=== PATIENT | female | born 1995 | race Caucasian/White ===

== ENCOUNTER → 2016-12-07 19:30 | Observation (INO) ==
[2016-12-07 18:49] LABS: Apearance,Urine CLEAR (Clear); Bacteria,Urine Occasional /HPF (Few); Bilirubin,Urine Negative (Negative); Blood, Urine Negative (Negative); Glucose,Urine (UA) Negative (Negative); Hyaline Casts,Urine 1 /LPF (0-3); Ketones,Urine Negative (Negative); Mucus,Urine Occasional /LPF (Occasional); Nitrite,Urine Negative (Negative); Protein,Urine Negative; Squamous Epithelial Cell,Urine Occasional /HPF (0-10); Urine Color Yellow (Yellow); Urine Urobilinogen < 2.0 EU/DL (0.2-1.0); WBC,Urine 1 /HPF (0-6)
== END | disposition home or self-care (01) ==
LOC: N.LD
PROVIDERS: ADMIT Obstetrics & Gynecology; ATTEND Obstetrics & Gynecology

== ENCOUNTER 2017-01-20 10:31 | Inpatient (IN) ==
[2017-01-20] MEDS ORDERED: BUTORPHANOL 2 MG/ML VIAL IV PRN (13:58)
[2017-01-20] MEDS ORDERED: MEPERIDINE 50 MG/1 ML VIAL IV PRN (13:58)
[2017-01-20] MEDS ORDERED: ONDANSETRON 4 MG/2 ML VIAL IV PRN (13:58)
[2017-01-20] MEDS ORDERED: OXYTOCIN/LR 20 UNIT/1,000 ML BAG IV SCH (14:00)
[2017-01-20] MEDS: LACTATED RINGERS 1,000 ML IV SCH ×2 (14:04→16:18)
--- NOTE | 2017-01-20 14:27 | OB/GYN History & Physical ---
History of Present Illness Chief complaint: In with complaints of painful uterine contraction History of present illness: Ms. Yap is a 21 year old female who is a 4 para 3 living 3. Her INGRIS is 01/30/2017 for an estimated gestational age of 38 weeks and and 4 days. The patient presents to the labor department in active labor. The risk and benefits been thoroughly discussed with this patient and significant other and plan of care has been discussed with Dr. Sarmiento, all parties are in agreement with plan. The patient and her care at the [facility] and she was eating routine care throughout, her course was uneventful. The patient has had 3 previous vaginal deliveries her largest weighing 8 pounds and 7 ounces, she reported no complications with any of those pregnancies. labs she is O+, RPR is nonreactive, hepatitis B is negative, HIV is negative, GC chlamydia cultures negative, GBS culture is negative. Review of systems is negative with exception of above. Home Medications Medication Instructions Recorded Confirmed Type Nitrofurantoin Monohyd/M-Cryst 100 mg PO BID 01/20/17 01/20/17 History [Macrobid 100 mg Capsule] Allergies Allergy/AdvReac Type Severity Reaction Status Date / Time No Known Allergies Allergy Verified 01/19/17 19:47 12 point system: reviewed and no additional remarkable complaints except as stated Medical,Surgical,& Family Hx - Medical History Medical History: noncontributory Reproductive: History of: Sexually Transmitted Disorders (Chlamydia but does not remember what year) - Surgical History Surgical History: noncontributory - Social History Smoking Status: Current some day smoker Have you smoked in the last 12 months: Yes Type of Drug Use: Marijuana (Patient states she quit when she found that she was ) Marital Status: Legally Lives With:: Parent Functional capacity: independent ambulation 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 General appearance: mild distress - Antepartum / Post Antepartum Exam Cervix - Dilatation: 6 cm Effacement: 70% effaced Station: -1 Rupture: Intact Presentation: Vertex Heart Rate: 140s-1 Garibaldi: Uterine contractions irregular Breast: bilateral: normal Abdomen obstetrics: Present: bowel sounds normal Vagina: Present: normal moisture, discharge (Bloody show) Uterus exam: Present: enlarged (Gravid size equal dates) - Neck Neck exam: Present: normal inspection - Respiratory Respiratory exam: Present: clear to auscultation bilaterally - Cardiovascular Cardiovascular exam: Present: regular rate and rhythm - GI/Abdominal GI/Abdominal exam: Present: normal bowel sounds, soft - Extremities Exam Extremities exam: Present: normal inspection - Neurological Exam Neurological exam: Present: alert, oriented X3 - Psychiatric Psychiatric exam: Present: normal affect, normal mood - Skin Skin exam: Present: normal color, warm Assessment and Plan (1) Active labor at term Status: Acute Assessment and plan: Admit IV fluids IV Pitocin per protocol Artificial rupture membranes Internal monitors if indicated Epidural anesthesia Anticipate Current Visit: Yes
[2017-01-20 14:40] LABS: Basophils % 0.2 % (0.0-0.8); Eosinophils # 0.1 10*3/uL (0.0-0.87); Eosinophils % 0.5 % (0.00-10.9); Hematocrit 30.6 VOL% (35.7-47.0); Immature Granulocytes % 0.6 %; Immature Granulocytes Absolute 0.08 #; Lymphocytes # 1.1 10*3/uL (1.4-4.0); Lymphocytes % 7.9 % (21.3-54.2); Mean Corpuscular HGB Conc 32.7 GM/DL (32-36); Mean Corpuscular Hemoglobin 29 PG (27-34); Mean Corpuscular Volume 87.2 FL (87-102); Mean Platelet Volume 11.6 FL (9.6-12.0); Monocytes # 1.1 10*3/uL (0.11-0.8); Monocytes % 7.6 % (1.7-12.7); Neutrophils # 11.5 10*3/uL (1.4-7.4); Neutrophils % 83.2 % (38.7-73.9); Platelet Count 244 T/CUMM (130-400); Red Blood Count 3.51 MC/CUMM (3.8-5.5); Red Cell Distribution Width 13.6 % (9.3-17.3); White Blood Count 13.9 T/CUMM (4-12)
[2017-01-20] MEDS ORDERED: FAMOTIDINE 20 MG/2 ML VIAL IV ONE (15:07)
[2017-01-20] MEDS ORDERED: CITRIC ACID/SODIUM CITRATE 30 ML UDCUP PO ONE (15:07)
[2017-01-20] MEDS ORDERED: LACTATED RINGERS 1,000 ML IV ONE (15:07)
[2017-01-20] MEDS ORDERED: fentaNYL 2 MCG/ROPIV 0.2% EPID 150 ML EPIDURAL SCH (15:09)
[2017-01-20] MEDS ORDERED: ePHEDrine 50 MG/ML AMP IV PRN (15:09)
[2017-01-20] MEDS ORDERED: hydrOXYzine HCL 25 MG/1 ML VIAL IM PRN (15:09)
[2017-01-20] MEDS ORDERED: diphenhydrAMINE 50 MG/1 ML VIAL IV PRN ×2 (15:09)
[2017-01-20] MEDS ORDERED: PROMETHAZINE 25 MG/1 ML VIAL IM ONE (15:09)
[2017-01-20] MEDS ORDERED: ePHEDrine 50 MG/ML AMP ONE (15:13)
[2017-01-20 15:14] LABS: Alanine Aminotransferase 9 U/L (13-56); Albumin 2.6 G/DL (3.4-5.0); Alkaline Phosphatase 273 U/L (45-117); Aspartate Amino Transferase 14 U/L (0-37); Bilirubin,Total < 0.39 MG/DL (0.2-1.0); Blood Urea Nitrogen 3 MG/DL (7-18); Calcium 8.6 MG/DL (8.5-10.1); Glucose 93 MG/DL (74-106); Osmolality,Calculated 273.5 MOS/KG (273-304); Potassium 3.7 MMOL/L (3.5-5.1); Sodium 139 MMOL/L (136-145); Total Protein 5.9 G/DL (6.4-8.3); Uric Acid 6.5 MG/DL (2.6-6.0)
--- NOTE | 2017-01-20 19:12 | Event Note ---
HPI: Ms. Yap is a 19-year-old female who presented to the labor department in active labor. The patient subsequently was admitted for management of active labor. The risk and benefits have been thoroughly discussed with the patient and significant other and plan of care has been discussed with Dr. Sarmiento and all parties were in agreement plan. Stage I: The patient was admitted she received IV fluids and IV Pitocin per protocol. Artificial rupture membranes was performed with clear fluid noted. The patient progressed in labor with a CAT 1 tracing. She received an epidural for pain control. She had an uneventful course of labor. Stage II: The patient was complete and was instructed to push. She pushed for approximately 20 minutes after which time the infant's head was delivered. Nuchal cord 1 was noted and reduced. The mouth and nose suctioned on perineum. The remainder the infant was delivered at 1853 a viable male infant was noted. The was placed on the mom's abdomen for skin to skin bonding. Apgars were 9 at 1 minute and 9 at 5 minutes. weight was 7 pounds and 11 ounces. A cord pH was obtained and sent to the lab. Stage III: A spontaneous delivery of a short Chen placenta with a three- vessel cord noted. The placenta was further examined. Grossly intact. The vagina cervix was inspected with no tears or lacerations noted. Estimated blood loss was approximately 50 cc. At the time of dictation mother and baby are both in stable condition.
[2017-01-20] MEDS ORDERED: ACETAMINOPHEN 325 MG TABLET PO PRN (19:14)
[2017-01-20] MEDS ORDERED: BENZOCAINE 20%/MENTHOL 0.5% SPRAY 56 GM CAN TOP PRN (19:14)
[2017-01-20] MEDS ORDERED: MEASLES/MUMPS/RUBELLA VACCINE 0.5 ML VIAL SUBCUT ONE (19:14)
[2017-01-20] MEDS ORDERED: oxyCODONE/ACETAMINOPHEN 5-325 MG TABLET PO PRN (19:14)
[2017-01-20] MEDS ORDERED: WITCH HAZEL PADS 100/JAR TOP PRN (19:14)
[2017-01-20] MEDS ORDERED: DIPH/TET/ACEL PERT BOOSTER VACCINE 0.5 ML VIAL IM ONE (19:14)
[2017-01-20] MEDS ORDERED: BISACODYL 10 MG SUPP RECTAL PRN (19:14)
[2017-01-20] MEDS ORDERED: HYDROCORTISONE 2.5% RECTAL CREAM 30 GM TUBE TOP PRN (19:14)
[2017-01-20] MEDS ORDERED: OXYTOCIN/LR 20 UNIT/1,000 ML BAG IV ONE (19:14)
[2017-01-20] MEDS ORDERED: LANOLIN 50% CREAM 0.3 OZ TUBE TOP PRN (19:14)
[2017-01-20] MEDS ORDERED: RHO(D) IMMUNE GLOBULIN 300 MCG SYRINGE IM ONE (19:14)
[2017-01-20] MEDS: IBUPROFEN 800 MG TABLET PO PRN (22:30)
[2017-01-20] MEDS: oxyCODONE/ACETAMINOPHEN 5-325 MG TABLET PO PRN (22:30)
[2017-01-21 06:45] LABS: Basophils % 0.1 % (0.0-0.8); Eosinophils # 0.1 10*3/uL (0.0-0.87); Eosinophils % 0.8 % (0.00-10.9); Hematocrit 25.6 VOL% (35.7-47.0); Hemoglobin 8.3 GM/DL (12.0-16.0); Immature Granulocytes % 0.6 %; Immature Granulocytes Absolute 0.07 #; Lymphocytes # 1.6 10*3/uL (1.4-4.0); Lymphocytes % 14.1 % (21.3-54.2); Mean Corpuscular HGB Conc 32.4 GM/DL (32-36); Mean Corpuscular Hemoglobin 28 PG (27-34); Mean Corpuscular Volume 87.1 FL (87-102); Mean Platelet Volume 11.6 FL (9.6-12.0); Monocytes # 1.2 10*3/uL (0.11-0.8); Neutrophils # 8.6 10*3/uL (1.4-7.4); Neutrophils % 74.4 % (38.7-73.9); Platelet Count 189 T/CUMM (130-400); Red Blood Count 2.94 MC/CUMM (3.8-5.5); Red Cell Distribution Width 13.4 % (9.3-17.3); White Blood Count 11.6 T/CUMM (4-12)
[2017-01-21] MEDS ORDERED: FERROUS SULFATE 325 MG TABLET PO SCH (09:00)
[2017-01-21] MEDS: DOCUSATE SODIUM 100 MG CAPSULE PO SCH ×2 (09:17→20:54)
--- NOTE | 2017-01-21 09:48 | OB/GYN Progress Note ---
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 Bonding well with infant. Exam PRESS OPERATOR MEAT - Constitutional Vitals: Vital Signs Temp Pulse Resp BP Pulse Ox 01/21/17 07:15 97.6 F 74 18 107/61 100 01/21/17 06:00 18 01/21/17 04:00 97.6 F 72 104/50 98 01/20/17 23:51 98.6 F 94 H 20 132/63 98 01/20/17 22:50 89 20 125/65 98 01/20/17 22:20 98.2 F 86 20 122/71 98 01/20/17 16:00 98.0 F 86 20 126/70 99 General appearance: no acute distress - Antepartum / Post Post Exam Breast: bilateral: normal Abdomen obstetrics: Present: bowel sounds normal Vagina: Present: normal moisture, discharge (Light lochia rubra) Uterus exam: Present: enlarged (Fundus firm and midline) Anus/Rectum: Present: normal perianal skin - Head Head exam: Present: normal inspection - Respiratory Respiratory exam: Present: clear to auscultation bilaterally - Cardiovascular Cardiovascular exam: Present: regular rate and rhythm - GI/Abdominal GI/Abdominal exam: Present: normal bowel sounds, soft - Extremities Exam Extremities exam: Present: normal inspection - Back Exam Back exam: Present: normal inspection - Neurological Exam Neurological exam: Present: alert, oriented X3 - Psychiatric Psychiatric exam: Present: normal affect, normal mood - Skin Skin exam: Present: normal color, warm Results - Labs CBC & BMP: 01/21/17 06:25 01/20/17 14:15
[2017-01-21] MEDS: oxyCODONE/ACETAMINOPHEN 5-325 MG TABLET PO PRN (13:05)
--- NOTE | 2017-01-21 13:44 | Anesthesia Post-Op ---
Anesthesia Post OP - Post Ansesthetic Evaluation Patient seen in post op: Yes Resp: within normal limits CV: within normal limits Mental: within normal limits Temp: within normal limits [id number]: within normal limits Nausea and Vomiting: within normal limits Pain: within normal limits
[2017-01-21] MEDS: FERROUS SULFATE 325 MG TABLET PO SCH ×3 (13:55→20:53)
[2017-01-21] MEDS: IBUPROFEN 800 MG TABLET PO PRN (20:53)
[2017-01-22] MEDS: FERROUS SULFATE 325 MG TABLET PO SCH (09:05)
[2017-01-22] MEDS: DOCUSATE SODIUM 100 MG CAPSULE PO SCH (09:05)
[2017-01-22 11:48] VITALS: BP 120/67
--- NOTE | 2017-01-22 14:30 | Discharge Summary ---
Hospital Course - Hospital Course Hospital Course: Status post vaginal Patient presently without any complaints, no shortness of breath, no excessive vaginal bleeding, no severe abdominal pain or discomfort. Lungs are clear cardiac exam was benign Extremities well with no limits and neurologic grossly intact Assessment plan Status post vaginal will discharge today. Specialty Discharge - Follow Up or Referrals Follow up with: Salvador Sarmiento MD [Primary Care Provider] - 03/04/17 10:30 am Discharge Plan - Discharge Data Condition at Discharge: Stable Discharge Diet: advance to your usual diet Activity: increase activity as tolerated Hygiene: may shower Weight Bearing at Discharge: full weight bearing Driving: no restrictions Contact your physician if you experience:: fever over 101, Bleeding - Discharge Medications New Hydrocortisone 2.5% Rectal Cr [Anusol HC Cream] 1 applic TOP QID PRN #1 applic PRN Reason: Hemorrhoids Ibuprofen Tab [Motrin Tab] 800 mg PO Q6H PRN #60 tablet PRN Reason: Pain Moderate (4-7) Ferrous Sulfate Tab [Feosol Original Tab] 325 mg PO TID #60 tablet oxyCODONE/ACETAMINOPHEN 5-325 [Percocet 5-325] 1 tablet PO Q6H PRN #20 tablet PRN Reason: Pain Severe (8-10) No Action Nitrofurantoin Monohyd/M-Cryst [Macrobid 100 mg Capsule] 100 mg PO BID - Follow Up or Referral Follow Up: Salvador Sarmiento MD [Primary Care Provider] - 03/04/17 10:30 am - Forms/Instructions Instructions: Perineal Care (DC), Vaginal Delivery (DC), Bleeding (DC) Exam - Constitutional Vitals: Period Temp Pulse Resp BP Sys/Figueroa Pulse Ox Last 24 Hr 97 F-98.4 F 64-88 16-20 102-123/60-75 96-100 DS: Provider Date of admission: 01/20/17 19:21 Primary care physician: Salvador Sarmiento MD Attending physician on admission: Salvador Sarmiento MD Consults: 01/20/17 13:59 Consult to Anesthesiology [CONS] Routine Consulting Provider: Reason for Anesthesiology: Epidural Consult Comment: Epidural for pain managment 01/20/17 19:14 Consult to Charge Master Coordinator [CONS] Routine Consult Charge Master Coordinator: Breast Feeding Discharging clinician: Salvador Sarmiento MD
== END 2017-01-22 14:50 | disposition home or self-care (01) | DRG 775 ==
LOC: N.LDOUT 10:31 → N.LD 10:36 → N.OB 22:08
PROVIDERS: ADMIT Obstetrics & Gynecology; ATTEND Obstetrics & Gynecology

== ENCOUNTER 2020-12-24 06:26 | Observation (INO) ==
[2020-12-19 16:39] LABS: Free T4 (Free Thyroxine) 0.95 NG/DL (0.76-1.46); Thyroid Stimulating Hormone 0.629 uIU/ml (0.358-3.74)
[~2020-12-24 06:26] MED LIST: ACETAMINOPHEN 500 MG TABLET PO ONE; DIAZEPAM 5 MG TABLET PO ONE; FAMOTIDINE 20 MG TABLET PO ONE; LACTATED RINGERS 1,000 ML IV SCH; ceFAZolin 1,000 MG in SYRINGE 1 EACH IV ONE
[2020-12-24] MEDS ORDERED: LIDOCAINE 1%/EPI INJ 20 ML VIAL ONE (10:04)
[2020-12-24] MEDS ORDERED: BUPIVACAINE MPF 0.25% 30 ML VIAL ONE (10:04)
[2020-12-24] MEDS ORDERED: TISSUE ADHESIVE 1 EACH APPLICATOR TOP ONE (10:04)
[2020-12-24] MEDS ORDERED: LIDOCAINE 2% 5 ML VIAL ONE (10:33)
[2020-12-24] MEDS ORDERED: SUCCINYLCHOLINE 200 MG/10 ML VIAL ONE (10:33)
[2020-12-24] MEDS ORDERED: ROCURONIUM 50 MG/5 ML VIAL IV ONE (10:33)
[2020-12-24] MEDS ORDERED: propofoL 200 MG/20 ML VIAL IV ONE (10:33)
[2020-12-24] MEDS ORDERED: MIDAZOLAM 2 MG/2 ML VIAL ONE (10:34)
[2020-12-24] MEDS ORDERED: fentaNYL 100 MCG/2 ML VIAL ONE ×2 (10:34→13:02)
[2020-12-24] MEDS ORDERED: ePHEDrine 50 MG/ML VIAL ONE (11:28)
[2020-12-24] MEDS ORDERED: PHENYLEPHRINE 1 MG/10 ML SYRINGE IV ONE (11:57)
[2020-12-24] MEDS ORDERED: ONDANSETRON 4 MG/2 ML VIAL ONE (11:57)
[2020-12-24] MEDS ORDERED: KETOROLAC 30 MG/1 ML VIAL ONE (13:37)
[2020-12-24] MEDS ORDERED: SEVOFLURANE 1 UNIT/15 MINUTE INH ONE (13:38)
[2020-12-24] MEDS ORDERED: ONDANSETRON 4 MG/2 ML VIAL IV PRN ×2 (13:42→14:59)
[2020-12-24] MEDS ORDERED: HYDROmorphone 2 MG/1 ML VIAL IV PRN ×2 (13:42→14:59)
[2020-12-24] MEDS ORDERED: PROMETHAZINE 25 MG/1 ML VIAL IM PRN (14:59)
[2020-12-24] MEDS ORDERED: SCOPOLAMINE 1.5 MG PATCH TRANSDERM ONE (15:04)
[2020-12-24 15:40] LABS: Calcium 8.6 MG/DL (8.5-10.1); Osmolality,Calculated 281.3 MOS/KG (273-304); Potassium 3.4 MMOL/L (3.5-5.1)
[2020-12-24] MEDS: KETOROLAC 30 MG/1 ML VIAL IV SCH ×2 (18:03→23:30)
[2020-12-24] MEDS: LACTATED RINGERS 1,000 ML IV SCH (21:38)
[2020-12-25] MEDS: KETOROLAC 30 MG/1 ML VIAL IV SCH (05:56)
[2020-12-25] MEDS: LACTATED RINGERS 1,000 ML IV SCH (05:56)
[2020-12-25 06:02] LABS: Calcium 8.1 MG/DL (8.5-10.1); Osmolality,Calculated 276.4 MOS/KG (273-304); Potassium 3.6 MMOL/L (3.5-5.1)
[2020-12-25 07:23] VITALS: BP 94/58
[2020-12-25] MEDS ORDERED: ENOXAPARIN 40 MG/0.4 ML SYRINGE SUBCUT SCH (09:00)
== END 2020-12-25 11:40 | disposition home or self-care (01) ==
LOC: N.OR 06:26 → N.SDSINP 06:28 → INTOOBSV 13:30 → N.OB 14:36
PROVIDERS: ADMIT Surgery; ATTEND Surgery